=== PATIENT | female | born 2000 | race Caucasian/White ===

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

== ENCOUNTER 2023-02-17 07:35 | Emergency (ER) | payer BC, OTHER ==
[~2023-02-17] VITALS: Ht 165.1 cm; Wt 85.7 kg
[~2023-02-17 07:35] MED LIST changes: +K-TAB ER20 MEQ PO; +PROMETHAZINE HC25 M1 PO; +REGLAN10 MG PO
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
[2023-02-17 09:03] LABS: BASOPHILS 0.4 % (0-2); EOSINOPHILS 0.1 % (0-6); HEMOGLOBIN 14.1 g/dL (12.0-18.0); LYMPHOCYTES 12.7 % (24-44); MCH 27.4 (27-36); MCHC 32.7 g/dl (30-36); MCV 83.8 fl (81-99); MONOCYTES 9.7 % (0-12); NEUTROPHILS 77.1 % (39-80); PLATELET COUNT 546 K/uL (140-440); RBC 5.13 M/ul (4.3-5.7); RDW 14.7 (10.5-15.0)
[2023-02-17 09:22] LABS: ALBUMIN 4.4 g/dL (3.4-5.0); ALBUMIN/GLOBULIN RATIO 0.98 (1.1-2.4); ANION GAP 17.2 (7-21); BILIRUBIN, TOTAL 1.4 ng/dL (0.2-1.0); BUN/CREATININE RATIO 16.66 (6.0-28.6); CREATININE, SERUM 1.38 mg/dL (0.55-1.02); POTASSIUM 3.2 mmol/L (3.5-5.1); PROTEIN, TOTAL 8.9 g/dL (6.4-8.2)
[2023-02-17 09:23] VITALS: BP 143/105
== END 2023-02-17 09:23 | disposition left against medical advice (07) ==
LOC: ED 07:35
PROVIDERS: Emergency Medicine
DX: R11.2 Nausea with vomiting, unspecified (principal); R10.9 Unspecified abdominal pain; Z53.21 Procedure and treatment not carried out due to patient leaving prior to being seen by health care provider; Z87.891 Personal history of nicotine dependence; Z88.8 Allergy status to other drugs, medicaments and biological substances; Z79.899 Other long term (current) drug therapy
CPT/HCPCS: 36415; 80053; 83690; 84703; 85025; J7030

== ENCOUNTER 2024-03-31 10:30 | Inpatient (IN) | payer OTHER ==
[~2024-03-31] VITALS: Ht 167.6 cm; Wt 102.1 kg
[2024-03-31] MEDS ORDERED: OXYTOCIN/DEXTROSE 5% 20 UNITS/100 ML BAG IV SCH (11:30)
[2024-03-31] MEDS ORDERED: MAGNESIUM HYDROXIDE/AL HYDROX 30 ML CUP PO PRN (11:30)
[2024-03-31] MEDS ORDERED: CALCIUM CARBONATE 500 MG CHEW PO PRN (11:30)
[2024-03-31 11:44] LABS: HEMATOCRIT 34.3 % (35.0-50.0); HEMOGLOBIN 11.3 g/dL (12.0-18.0); MCH 25.1 (27-36); MCHC 32.9 g/dl (30-36); MCV 76.3 fl (81-99); RBC 4.49 M/ul (4.3-5.7); RDW 15.4 (10.5-15.0)
[2024-03-31] MEDS ORDERED: fentaNYL citrate 100 MCG/2 ML VIAL ONE ×2 (12:10→16:21)
[2024-03-31 12:20] LABS: ABO O; ANTIBODY SCREEN NEGATIVE; RH POSITIVE
[2024-03-31] MEDS ORDERED: LACTATED RINGER'S 2,000 ML IV ONE ×2 (12:30→15:00)
[2024-03-31] MEDS ORDERED: ePHEDrine sulfate 5 MG/ML SYRINGE IV PRN ×2 (12:30→15:00)
[2024-03-31] MEDS ORDERED: LACTATED RINGER'S 500 ML IV PRN ×2 (12:30→15:00)
[2024-03-31 13:11] LABS: AMPHETAMINES, URINE NEGATIVE (NEGATIVE); BARBITURATES, URINE NEGATIVE (NEGATIVE); BENZODIAZEPINE, URINE NEGATIVE (NEGATIVE); BUPRENORPHINE, URINE NEGATIVE (NEGATIVE); CANNABINOID, URINE POSITIVE (NEGATIVE); COCAINE, URINE NEGATIVE (NEGATIVE); ECSTASY, URINE NEGATIVE (NEGATIVE); FENTANYL, URINE NEGATIVE (NEGATIVE); METHADONE, URINE NEGATIVE (NEGATIVE); OPIATES, URINE NEGATIVE (NEGATIVE); OXYCODONE, URINE NEGATIVE (NEGATIVE); PHENCYCLIDINE, URINE NEGATIVE (NEGATIVE)
[2024-03-31] MEDS ORDERED: OXYTOCIN/0.9 % SODIUM CHLORIDE 500 ML IV SCH ×2 (14:00→17:45)
[2024-03-31] MEDS ORDERED: ROPIVACAINE 0.2% 200 ML BAG ONE (14:15)
[2024-03-31] MEDS ORDERED: ROPIVACAINE 0.2% 200 ML BAG EPIDURAL SCH (15:00)
[2024-03-31] MEDS ORDERED: AZITHROMYCIN/DEXTROSE 500 MG/250 ML BAG ONE (16:09)
[2024-03-31] MEDS ORDERED: CEFAZOLIN SODIUM 2 GM/20 ML SYR ONE (16:09)
[2024-03-31] MEDS ORDERED: AZITHROMYCIN 500 MG in DEXTROSE 5% 250 ML IV ONE (16:15)
[2024-03-31] MEDS ORDERED: CEFAZOLIN SODIUM 2 GM/20 ML SYR IV ONE (16:15)
[2024-03-31] MEDS ORDERED: OXYTOCIN 10 UNITS/ML VIAL ONE ×3 (16:21→17:09)
[2024-03-31] MEDS ORDERED: LIDOCAINE 2% W/ EPI 1:200,000 20 ML SDV ONE (16:21)
[2024-03-31] MEDS ORDERED: ondansetron HCL 4 MG/2 ML VIAL ONE (16:21)
[2024-03-31] MEDS ORDERED: AZITHROMYCIN/DEXTROSE 500 MG/250 ML BAG IV ONE (16:30)
[2024-03-31] MEDS ORDERED: Ropivacaine HCl 0.5% 30 ML VIAL ONE (16:43)
[2024-03-31] MEDS ORDERED: SODIUM CHLORIDE 0.9% 20 ML IV ONE (16:51)
[2024-03-31] MEDS ORDERED: DEXAMETHASONE SOD PHOS 4 MG/ML VIAL ONE ×2 (16:51)
[2024-03-31] MEDS ORDERED: PHENYLEPHRINE HCL 10 MG/ML VIAL ONE (16:57)
[2024-03-31] MEDS ORDERED: FAMOTIDINE 20 MG/ 2 ML VIAL ONE (16:58)
[2024-03-31] MEDS ORDERED: MORPHINE SULFATE 1 MG/ML VIAL ONE (17:06)
[2024-03-31] MEDS ORDERED: LACTATED RINGER'S 1,000 ML IV ONE (17:09)
[2024-03-31] MEDS ORDERED: PROCHLORPERAZINE EDISYLATE 10 MG/2 ML VIAL IV PRN ×2 (17:15→17:45)
[2024-03-31] MEDS ORDERED: HYDROmorphone HCL 1 MG/ML SYR IV PRN (17:15)
[2024-03-31] MEDS ORDERED: diphenhydrAMINE HCL 50 MG/ML VIAL IV PRN (17:15)
[2024-03-31] MEDS ORDERED: NALOXONE HCL 0.4 MG SYR IV PRN (17:15)
[2024-03-31] MEDS ORDERED: KETOROLAC TROMETHAMINE 30 MG/ML VIAL IV PRN (17:15)
[2024-03-31] MEDS ORDERED: ondansetron HCL 4 MG/2 ML VIAL IV PRN ×2 (17:15→17:45)
[2024-03-31] MEDS ORDERED: LACTATED RINGER'S 1,000 ML IV SCH (17:39)
[2024-03-31] MEDS ORDERED: bisacodyL 10 MG SUPP PR PRN (17:45)
[2024-03-31] MEDS ORDERED: LIDOCAINE 2% VISCOUS 6 ML SYR TOP ONE (17:45)
[2024-03-31] MEDS ORDERED: OXYCODONE HCL 5 MG TAB PO PRN (17:45)
[2024-03-31 18:24] VITALS: BP 101/55
--- NOTE | 2024-03-31 18:31 | NUR ---
03/31/24 183 Anita Carter 1739- PT BROUGHT BACK TO ROOM 102 IN [facility]. PT AWAKE BUT DROWSY, IN SUPINE POSITION. PT DENIES PAIN OR NAUSEA. PT HAS MAYEN CATHETER IN PLACE DRAINING CLEAR DILUTE URINE. LR WITH 20 UNITS OF PITOCIN INFUSING TO RW 18 G IV. ABD SOFT, WENDY PAD IN PLACE. PT DOES REPORT HANDS FEELING NUMB AT THIS TIME, DENIES ANY DIFFICULTY BREATHING. O2 SATS NORMAL, BREATHING EVEN AND NON LABORED. FAMILY AT BEDSIDE WITH BABY, PT CONCERNED TO DROP BABY DUE TO HANDS BEING NUMB. 1744- BP DROPPED SOME FROM INITIAL, CONTINUE TO KEEP PT SUPINE AT THIS TIME. CHECKED BLEEDING WITH FUNDAL CHECK, MIDLINE, FIRM, SMALL AMOUNT OF BLOOD WITH MASSAGE. WILL CONTINUE TO MONITOR. PT IS ASYMPTOMATIC AT THIS TIME. LR WITH PITOCIN HUNG HIGHER AND IV FLUSHED FOR FASTER INFUSION. [facility] RN AT BEDSIDE. 174- NO CHANGE IN PT STATUS, BP REMAINS IN THE UPPER 90'S SYSTOLIC. PT REPORTS HANDS ARE STARTING TO FEEL JUST TINGLY NOW. CONTINUES TO HAVE NO RESPIRATORY SYMPTOMS. 1754- BP INCREASED, HEAD OF BED ELEVATED SOME. NO DIZZINESS OR NAUSEA REPORTED AT THIS TIME. WILL CONTINUE TO MONITOR. 1800- SPINAL HAS COME DOWN SOME, PT REPORTS THAT HER HANDS ARE FEELING MORE NORMAL. NO RESPIRATORY CONCERNS. BP CONTINUES TO INCREASE. PT HAS LITTLE NO BLEEDING WITH FUNDAL CHECKS. 1809- REPORT TO LIU RN AT BEDSIDE. LR WITH 20 UNITS OF PITOCIN CONTINUE TO INFUSE IN THE RW 18 G IV. MAYEN CATHETER REMAINS IN PLACE DRAINING CLEAR DILUTE URINE. FUNDUS ASSESSED TOGETHER. PT HAS NO COMPLAINTS, DENIES PAIN OR NAUSEA. BED PLUGGED IN. CARE OF PT TURNED OVER AT THIS TIME.
[2024-03-31] MEDS ORDERED: KETOROLAC TROMETHAMINE 30 MG/ML VIAL IV SCH (20:00)
[2024-03-31] MEDS ORDERED: SENNOSIDES/DOCUSATE 1 EA TAB PO SCH (21:00)
[2024-03-31] MEDS ORDERED: SIMETHICONE 125 MG TABLET CHEWABLE PO SCH (21:00)
[2024-03-31] MEDS ORDERED: ACETAMINOPHEN 500 MG TAB PO SCH (22:00)
[2024-04-01 05:38] LABS: HEMATOCRIT 28.9 % (35.0-50.0); HEMOGLOBIN 9.4 g/dL (12.0-18.0); MCH 25.3 (27-36); MCHC 32.6 g/dl (30-36); MCV 77.7 fl (81-99); RBC 3.72 M/ul (4.3-5.7); RDW 15.4 (10.5-15.0)
[2024-04-01] MEDS ORDERED: FAMOTIDINE 20 MG/ 2 ML VIAL IV PRN (08:30)
[2024-04-01] MEDS ORDERED: IBUPROFEN 800 MG TAB PO SCH (18:00)
[2024-04-01] MEDS ORDERED: diphenhydrAMINE HCL 50 MG/ML VIAL IV PRN (20:15)
--- NOTE | 2024-04-05 08:43 | OR ---
[facility] [address] [place], [place] [address] Signed DATE OF OPERATION: 03/31/2024 SURGEON: India Lowe MD PREOPERATIVE DIAGNOSIS: Non-reassuring status. POSTOPERATIVE DIAGNOSIS: Non-reassuring status, delivered. PROCEDURE: Primary section, low segment transverse uterine incision. ANESTHESIA: Epidural. ESTIMATED BLOOD LOSS: 500 mL. DRAINS: Green. INDICATIONS AND FINDINGS: The patient is a 23-year-old female, 1, para 0, who was admitted at 40 and 2/7th weeks, in active labor. She made rapid progress in the active phase of labor and begin pushing. In the second stage, however, the baby developed recurrent severe variables, which were worsening. She had brought the baby down to +2 station, but she declined a trial of a vacuum and requested section instead. She was taken to the operating room, where she was delivered of a little girl from the LOP position with Apgars of 9 and 9 and a weight of 6 pounds 6 ounces. Uterus, tubes, ovaries, and placenta were normal. DESCRIPTION OF PROCEDURE: The patient was prepped and draped in the supine position. A Pfannenstiel skin incision was made and carried down through the fascia. The incision was extended laterally. The inferior and superior fascial flaps were then created. The muscles were bluntly divided and the peritoneum also entered bluntly and the incision extended bluntly. The Ken retractor was placed. The uterine incision was made at the upper aspect of the peritoneal reflection. This incision was also extended bluntly. The baby was delivered with the above findings and handed off to the pediatric staff in attendance. The Electronically Signed By: INDIA LOWE MD 04/05/24 0843 PATIENT NAME: SARAH BAUER OPERATIVE REPORT DATE OF : 01 REPORT #: [id number] PHYSICIAN: INDIA LOWE MD PCP: OTHER PCP REPORT IS CONFIDENTIAL AND NOT TO BE RELEASED WITHOUT AUTHORIZATION [facility] [address], [place] [address] Signed placenta was expressed and the uterus was explored showing no remaining fragments. The edges of the incision were identified and the uterus was closed in two layers using 0-Monocryl. The first layer was a running locking stitch and the second was a vertical imbricating stitch. There was a small hematoma near the patient's right angle below the incision and a hjxnec-na-htesx of 2-0 chromic was placed in this area. There was no evidence of any expansion of the hematoma. The abdomen was irrigated, inspected and good hemostasis was noted. The retractor was removed. The peritoneum identified. The peritoneum was closed with a running suture of 3-0 Vicryl. The muscles were brought together with interrupted sutures of 0-Vicryl. Bleeding points were controlled with cautery. This layer was also irrigated, inspected and good hemostasis was noted. The fascia was then closed from each angle to the midline with a running suture of 0-Vicryl. The subcu space was irrigated and bleeding points controlled with cautery. A running suture of 3-0 Vicryl was placed, closing the deep space. The skin was closed with sabi. All sponge and needle counts were correct. She tolerated the procedure well and was taken to the recovery room in good condition. India Lowe MD PJW/MODL /[id number] Copies: ~ Electronically Signed By: INDIA LOWE MD 04/05/24 0843 PATIENT NAME: LASHAWN BAUERNN ABDULAZIZ OPERATIVE REPORT DATE OF : 01 REPORT #: [id number] PHYSICIAN: INDIA LOWE MD PCP: OTHER PCP REPORT IS CONFIDENTIAL AND NOT TO BE RELEASED WITHOUT AUTHORIZATION
== END 2024-04-02 12:29 | disposition home or self-care (01) | DRG 788 ==
LOC: FBCO 10:30 → FBC 11:00
PROVIDERS: Obstetrics & Gynecology; ADMIT Student in an Organized Health Care Education/Training Program; ATTEND Student in an Organized Health Care Education/Training Program
PROC: 10D00Z1 Extraction of Products of Conception, Low, Open Approach (ICD-10-PCS; principal; 2024-03-31 16:30)
DX: O48.0 Post-term pregnancy (principal); O76 Abnormality in fetal heart rate and rhythm complicating labor and delivery; Z37.0 Single live birth; Z3A.40 40 weeks gestation of pregnancy
CPT/HCPCS: 01961; 36415; 80307; 82803; 85027; 85060; 86850; 86900; 86901; A9270; J0456; J0690; J1100; J1200; J1885; J2274; J2371; J2405; J2590; J2795; J3010; J7121

== ENCOUNTER 2025-03-08 17:26 | Inpatient (IN) | payer OTHER ==
[~2025-03-08] VITALS: Ht 167.6 cm; Wt 104.3 kg
[2025-03-29] MEDS ORDERED: LACTATED RINGER'S 1,000 ML IV SCH ×2 (05:00→08:50)
[2025-03-29] MEDS ORDERED: SOD+POT BICARB/CITRIC ACID 2 EA TABLET.EFF PO ONE (05:15)
[2025-03-29 05:43] LABS: MCH 28.4 PG (25.6-32.2); MCHC 33.5 g/dL (32.2-35.5); MCV 84.7 fL (79.4-94.8); RBC 4.44 M/uL (3.93-5.22)
[2025-03-29 05:44] VITALS: BP 119/71
[2025-03-29 06:18] LABS: ABO O; ANTIBODY SCREEN NEGATIVE; RH POSITIVE
[2025-03-29] MEDS ORDERED: CEFAZOLIN SODIUM 2 GM in SODIUM CHLORIDE 0.9% 100 ML IV SCH (07:00)
[2025-03-29] MEDS ORDERED: LIDOCAINE HCL 1% 5 ML SDV INJ ONE (07:00)
[2025-03-29] MEDS ORDERED: IBLOOD GLUCOSE TEST STRIP 1 EA TEST VI PRN (07:00)
[2025-03-29 07:01] LABS: AMPHETAMINES, URINE NEGATIVE (NEGATIVE); BARBITURATES, URINE NEGATIVE (NEGATIVE); BENZODIAZEPINE, URINE NEGATIVE (NEGATIVE); CANNABINOID, URINE POSITIVE (NEGATIVE); COCAINE, URINE NEGATIVE (NEGATIVE); ECSTASY, URINE NEGATIVE (NEGATIVE); FENTANYL, URINE NEGATIVE (NEGATIVE); METHADONE, URINE NEGATIVE (NEGATIVE); OPIATES, URINE NEGATIVE (NEGATIVE); OXYCODONE, URINE NEGATIVE (NEGATIVE); PHENCYCLIDINE, URINE NEGATIVE (NEGATIVE)
[2025-03-29] MEDS ORDERED: BUPIVACAINE 0.75% IN DEXTROSE 2 ML AMP ONE (07:16)
[2025-03-29] MEDS ORDERED: fentaNYL citrate 100 MCG/2 ML VIAL ONE (07:16)
[2025-03-29] MEDS ORDERED: OXYTOCIN 10 UNITS/ML VIAL ONE (07:16)
[2025-03-29] MEDS ORDERED: LIDOCAINE HCL 2% 5 ML SDV ONE (07:16)
[2025-03-29] MEDS ORDERED: MORPHINE SULFATE 1 MG/ML VIAL ONE (07:16)
[2025-03-29] MEDS ORDERED: DEXAMETHASONE SOD PHOS 4 MG/ML VIAL ONE ×3 (07:39→08:07)
[2025-03-29] MEDS ORDERED: LACTATED RINGER'S 1,000 ML IV ONE (07:45)
[2025-03-29] MEDS ORDERED: MIDAZOLAM HCL 2 MG/2 ML VIAL ONE (07:53)
[2025-03-29] MEDS ORDERED: Ropivacaine HCl 0.5% 30 ML VIAL ONE (08:06)
[2025-03-29] MEDS ORDERED: SODIUM CHLORIDE 0.9% 20 ML IV ONE (08:06)
[2025-03-29] MEDS ORDERED: KETOROLAC TROMETHAMINE 30 MG/ML VIAL IV PRN (08:15)
[2025-03-29] MEDS ORDERED: NALOXONE HCL 0.4 MG SYR IV PRN (08:15)
[2025-03-29] MEDS ORDERED: HYDROmorphone HCL 1 MG/ML SYR IV PRN (08:15)
[2025-03-29] MEDS ORDERED: OXYCODONE HCL 5 MG TAB PO PRN (08:45)
[2025-03-29] MEDS ORDERED: OXYTOCIN/0.9 % SODIUM CHLORIDE 500 ML IV SCH (08:45)
[2025-03-29] MEDS ORDERED: OXYCODONE/APAP 5/325 TAB PO PRN (08:45)
[2025-03-29] MEDS ORDERED: HYDROCODONE/ACETA 5/325 TAB PO PRN (08:45)
[2025-03-29] MEDS ORDERED: SENNOSIDES/DOCUSATE 1 EA TAB PO SCH (09:00)
[2025-03-29 09:03] VITALS: BP 105/56
--- NOTE | 2025-03-29 09:06 | NUR ---
03/29/25 0906 Tracie Stern 8691 PT IN ROOM AND REPORT RECEIVED. PT DENIES CONCERNS. HOB INCREASED AND PT RESTING IN BED EYES OPEN. 0900 BABY TO BREAST WITH FBC RNS. PT CONTINUES TO DENY NAUSEA.
[2025-03-29] MEDS ORDERED: SIMETHICONE 80 MG CHEW PO SCH (11:00)
[2025-03-29] MEDS ORDERED: KETOROLAC TROMETHAMINE 30 MG/ML VIAL IV SCH (14:00)
[2025-03-29] MEDS ORDERED: CALCIUM CARBONATE 500 MG CHEW PO ONE (16:45)
[2025-03-29] MEDS ORDERED: ENOXAPARIN SODIUM 40 MG/0.4 ML SYR SUB-Q SCH (18:00)
[2025-03-30 05:14] LABS: MCH 28.0 PG (25.6-32.2); MCHC 32.6 g/dL (32.2-35.5); MCV 86.0 fL (79.4-94.8); RBC 4.21 M/uL (3.93-5.22)
[2025-03-30] MEDS ORDERED: IBUPROFEN 600 MG TAB PO SCH ×2 (08:00→14:00)
== END 2025-03-30 16:20 | disposition home or self-care (01) | DRG 784 ==
LOC: FBC 03-29 04:59
PROVIDERS: ADMIT Obstetrics & Gynecology; ATTEND Obstetrics & Gynecology
PROC: 4A1HXCZ Monitoring of Products of Conception, Cardiac Rate, External Approach (ICD-10-PCS; 2025-03-29)
PROC: 10D00Z1 Extraction of Products of Conception, Low, Open Approach (ICD-10-PCS; principal; 2025-03-29 07:30)
PROC: 0UT70ZZ Resection of Bilateral Fallopian Tubes, Open Approach (ICD-10-PCS; 2025-03-29 07:30)
DX: O34.211 Maternal care for low transverse scar from previous cesarean delivery (principal); O99.324 Drug use complicating childbirth; Z30.2 Encounter for sterilization; Z3A.39 39 weeks gestation of pregnancy; Z37.0 Single live birth; O69.81X0 Labor and delivery complicated by cord around neck, without compression, not applicable or unspecified; Z88.8 Allergy status to other drugs, medicaments and biological substances; F12.90 Cannabis use, unspecified, uncomplicated
CPT/HCPCS: 01961; 36415; 80307; 85027; 86850; 86900; 86901; A9270; J0688; J1100; J1200; J1650; J1885; J2003; J2250; J2274; J2405; J2590; J2795; J3010; J7121